=== PATIENT | male | born 2000 | race African-American/Black ===

== ENCOUNTER 2024-10-28 13:16 | Emergency (ER) | payer SELFPAY ==
[2024-10-28] MEDS ORDERED: Acetaminophen 500 MG TAB ONE (14:53)
[2024-10-28] MEDS ORDERED: Benzonatate 100 MG CAP ONE (15:33)
[2024-10-28] MEDS ORDERED: Ibuprofen 200 MG TAB ONE (15:37)
[2024-10-28] MEDS ORDERED: Benzonatate 100 MG CAP PO SCH (15:45)
== END 2024-10-28 16:11 | disposition home or self-care (01) ==
LOC: CSHERS 13:16
DX: J11.1 Influenza due to unidentified influenza virus with other respiratory manifestations (principal)
CPT/HCPCS: 87428; 99284